=== PATIENT | male | born 1955 | race Caucasian/White ===

== ENCOUNTER 2025-06-10 14:20 | Emergency (ER) | payer OTHER, SELFPAY ==
[2025-06-10 14:24] VITALS: BP 162/103
[2025-06-10 14:42] LABS: Hematocrit 40.7 % (39.0-52.0); Hemoglobin 13.7 g/dL (13.0-18.0); Mean Corp Hgb Conc. 33.7 g/dL (33.0-37.0); Mean Corpuscular Volume 88.7 fL (80.0-94.0); Nucleated Red Blood Cells % 0 % (-); Platelet Count 226 10^3/uL (130-400); Red Cell Dist. Width 12.4 % (11.5-14.5)
--- NOTE | 2025-06-10 14:47 | EDRN ---
After triage was completed, patient was concerned about how long the wait time is. Patient states 'I have some things I have to take care of'
Patient was informed about the need for testing given his hx and complaints. Patient agreed to have ECG and some blood work.
Patient then stated that he needs to leave as he has things in his personal life he needs to get completed before coming back. Had detailed conversation with patient about the risk of leaving. Patient states ' I think i need to go be stupid for
awhile but once I get my things done, I will return.'
Patient ambulated out of department in no distress.
[2025-06-10 14:58] LABS: ALT (SGPT) 28 U/L (0-50); AST (SGOT) 24 U/L (17-59); Albumin 4.4 g/dl (3.5-5.0); Alkaline Phosphatase 80 U/L (38-126); Blood Urea Nitrogen 22 mg/dl (9-20); Calcium 9.3 mg/dl (8.4-10.2); Carbon Dioxide 25 mmol/L (22-30); Chloride 105 mmol/L (98-107); Glucose 93 mg/dl (70-99); Potassium 4.8 mmol/L (3.5-5.1); Sodium 137 mmol/L (135-145); Total Protein 7.3 g/dl (6.3-8.2); eGFR 46.06
[2025-06-10 15:08] LABS: Troponin I < 0.012 ng/ml
== END 2025-06-10 14:51 | disposition left against medical advice (07) ==
LOC: EMR 14:20
PROVIDERS: EMERGENCY PHYSICIAN Student in an Organized Health Care Education/Training Program
DX: R10.9 Unspecified abdominal pain (principal); Z53.21 Procedure and treatment not carried out due to patient leaving prior to being seen by health care provider
CPT/HCPCS: 80053; 84484; 85025; 93005

== ENCOUNTER 2025-06-10 16:56 | Emergency (ER) | payer OTHER, SELFPAY ==
[2025-06-10] VITALS (8 sets, daily range): BP systolic 105–181; BP diastolic 82–103
--- NOTE | 2025-06-10 22:10 | ED.GENMED ---
History of Present Illness
General
Chief Complaint: Abdominal Symptoms
Time Seen by Provider: 06/10/25 21:48
Nursing documentation reviewed up to this point in time: agreed with
History of Present Illness
History of Present Illness:
69-year-old male presents to the ER as referred from urgent care for further evaluation of abdominal discomfort. Patient states that he was up the majority of the night on due to diffuse anterior abdominal pain with radiation to the back.
He states that the symptoms seem to have improved spontaneously. He had a brief episode of exquisitely sharp pain after eating dinner on Tuesday night. He cannot recall what he ate for dinner that evening. Since then he has not had any pain. No
vomiting. No diarrhea. No change in bladder or urine. No flank pain. No paresthesias to arms or legs. He denies chest pain or shortness of breath. Patient is concerned given his prior history of thoracic aneurysm and valve repair. He recently
moved to the area from [place] but states that he has screening CAT scans every year to assess his grafts. He also has been told that he has gallstones but has not experienced any symptoms that he would have had attributed to gallstones percent
Review of Systems
Review of Systems
Allergies reviewed?: Yes
Phy Exam
Physical Exam
Physical Exam:
Patient is awake, alert, appears no acute distress, head is normocephalic atraumatic, sclera anicteric, mucous membranes moist, conjunctiva pink, no JVD, heart regular rate and rhythm with systolic click, lungs are clear to auscultation without
wheezes rales or rhonchi, abdomen is soft and nontender, no rebound or guarding, extremities without edema, 2+ DP pulses present symmetric bilateral, GCS is 15
Course
Orders/Labs/Results
Orders:
Orders
06/10/25 21:49
CT Chest/abd/pelvis Angio W/wo Urgent
Comment:
Reason For Exam: abd and back pain, concern for dissection
06/10/25 21:54
Type+Screen Urgent
PTT Urgent
Prothrombin Time Urgent
Labs reviewed from earlier today which were very reassuring, white blood count 6.5, normal hemoglobin,minimal elevation in creatinine at 1.6, BUN 22, normal electrolytes
Vital Signs
Initial and Last Documented VS:
Initial Vital Signs
Temp Pulse Resp BP Pulse Ox
98.3 F 59 18 144/87 96
06/10/25 17:07 06/10/25 17:07 06/10/25 17:07 06/10/25 17:07 06/10/25 17:07
Last Documented Vital Signs
Temp Pulse Resp BP Pulse Ox
98.3 F 50 15 163/91 97
06/10/25 17:07 06/10/25 23:30 06/10/25 23:30 06/10/25 23:00 06/10/25 23:30
MDM/Problems Addressed
Differential Diagnosis Includes:
Pancreatitis, acute cholelithiasis, acute choledocholithiasis, aortic aneurysm, aortic dissection, gastritis, gas along with other etiologies considered
Chronic conditions affecting care:
Prior aortic aneurysm with repair, renal cancer
*Radiology
Radiology exam reviewed: radiology read reviewed (IMPRESSION: No evidence of thoracic/abdominal aortic dissection or aneurysm. Findings suspicious for lobulated approximate 4 cm mass in the lower lobe of the left lung contiguous with the left side
of the descending thoracic aorta, MALIGNANCY THE DIAGNOSIS OF EXCLUSION, possibly metastatic. Prior)
*Pulse Oximetry
SaO2: 96
Oxygen Mode of Delivery: Room air
Patient hypoxic: no
*Critical Care Note
Total Time (30-74mins, 75-104mins- exclusive of procedures): Not Applicable
Update Note
Update Note:
Patient resting comfortably without any recurrent symptoms while in the emergency department. Once all test results available, I discussed with patient CT findings concerning for new metastatic disease in his left lower lobe. Patient was able to
pull up CT results from earlier this year through his online portal-this appears to be a new mass. I discussed with patient need to follow-up with oncology and his primary care physician. He is currently in the process of establishing care with a
local primary care physician as he recently moved to the area. He also would like to discuss this further with his care team in [place], which I reassured him would be very helpful. I also discussed with patient that his original symptoms may
still be related to his gallstones and encouraged him to follow a low-fat diet. I provided him with local surgical referral for further evaluation of his gallstones. Patient felt comfortable with plan for discharge and had no questions prior to
leaving the department.
ED Attending Note
-
Portions of this chart may have been created with voice recognition software.� Occasional wrong word or��sound alike� substitutions may have occurred due to the inherent limitations of voice recognition software.
Discharge Plan
Departure
Patient Disposition: Home (Routine Discharge)
Date of Disposition: 06/10/25
Time of Disposition: 23:32
Patient with high blood pressure during this ER visit?: Yes
Discharge Problem:
Abdominal pain, Mass of left lung, Gallstones
Instructions: Gallstones - ED discharge instructions
Referrals:
Sterling Li DO [Active, Hematology / Oncology]
Discharge Problem: Mass of left lung
Luis Fernando Hawley DO [Family Provider, Family Practice]
Piyush Gar MD [Active, Surgical]
Discharge Problem: Gallstones
Activity Restrictions/Additional Instructions:
Follow a bland low-fat diet until you are seen in follow-up. Please reach out to your cancer specialist in [place] tomorrow to review test results and help create further care plan given new finding of lung mass on the left. Please return to
the ER for any concerns including but not limited to inability to eat or drink, fever, uncontrolled pain
Interventions
Interventions:
*Risk Screen - Suicide Last Done: 06/10/25 17:07
*General Assessment Last Done: 06/10/25 22:00
*Neglect/Abuse Screening Last Done: 06/10/25 22:00
*ED- Fall Risk Assessment Last Done: 06/10/25 22:00
*Nursing Disposition Last Done: 06/10/25 23:57
PD-Jusjqg-Yydglbiscy Assessment Last Done: 06/10/25 22:00
Discharge Date and Time
Discharge Date/Time: 06/10/25 23:58
Print Language: [place]
[2025-06-10 22:20] LABS: INR 0.92; PT 12.7 Sec (11.4-14.6)
[2025-06-10 22:21] LABS: APTT 26.9 Sec (23.4-35.0)
== END 2025-06-10 23:58 | disposition home or self-care (01) ==
LOC: EMR 16:56
PROVIDERS: EMERGENCY PHYSICIAN Emergency Medicine; FAMILY PHYSICIAN Family Medicine
DX: R10.9 Unspecified abdominal pain (principal); R91.8 Other nonspecific abnormal finding of lung field; K80.20 Calculus of gallbladder without cholecystitis without obstruction; Z85.528 Personal history of other malignant neoplasm of kidney; Z90.5 Acquired absence of kidney
CPT/HCPCS: 99284; 71275; 74174; 85610; 85730; 86850; 86900; 86901; Q9967

== ENCOUNTER → 2025-06-20 11:26 | Outpatient (REF) | payer OTHER, SELFPAY | LOC: HWRAD 11:26 | PROVIDERS: ATTENDING PHYSICIAN Internal Medicine Critical Care Medicine; FAMILY PHYSICIAN Nurse Practitioner Family | DX: R91.8 Other nonspecific abnormal finding of lung field (principal) | CPT/HCPCS: 71250 ==

== ENCOUNTER → 2025-06-21 09:17 | Outpatient (REF) | payer OTHER, SELFPAY ==
[2025-06-21 10:58] LABS: Hematocrit 43.0 % (39.0-52.0); Hemoglobin 13.9 g/dL (13.0-18.0); Mean Corp Hgb Conc. 32.3 g/dL (33.0-37.0); Mean Corpuscular Volume 90.3 fL (80.0-94.0); Nucleated Red Blood Cells % 0 % (-); Platelet Count 236 10^3/uL (130-400); Red Cell Dist. Width 12.3 % (11.5-14.5)
[2025-06-21 11:04] LABS: INR 0.95; PT 13.0 Sec (11.4-14.6)
[2025-06-21 11:05] LABS: APTT 27.8 Sec (23.4-35.0)
[2025-06-21 11:29] LABS: Blood Urea Nitrogen 20 mg/dl (9-20); Calcium 9.9 mg/dl (8.4-10.2); Carbon Dioxide 30 mmol/L (22-30); Chloride 106 mmol/L (98-107); Glucose 96 mg/dl (70-99); Potassium 5.2 mmol/L (3.5-5.1); Sodium 140 mmol/L (135-145); eGFR 49.77
== END ==
LOC: REG 09:17
PROVIDERS: ATTENDING PHYSICIAN Internal Medicine Critical Care Medicine; FAMILY PHYSICIAN Nurse Practitioner Family; OTHER PHYSICIAN Family Medicine
DX: R91.8 Other nonspecific abnormal finding of lung field (principal); Z01.812 Encounter for preprocedural laboratory examination
CPT/HCPCS: 36415; 80048; 85025; 85610; 85730; 93005

== ENCOUNTER 2025-06-26 06:07 | Day surgery (SDC) | payer OTHER, SELFPAY ==
[2025-06-26] MEDS: VENTOLIN NEBULES 2.5 MG INH (12:30)
[2025-06-26 12:32] VITALS: BMI 25.8
[2025-06-26 12:45] VITALS: BMI 25.8
[2025-06-26 12:46] VITALS: BP 153/91
[2025-06-26 15:55] VITALS: BP 131/86; BP 153/91
[2025-06-26 16:20] VITALS: BP 131/79
[2025-06-26 16:35] VITALS: BP 128/7
[2025-06-26 16:50] VITALS: BP 124/68
== END 2025-06-26 16:59 | disposition home or self-care (01) ==
LOC: SDS 06:07
PROVIDERS: ATTENDING PHYSICIAN Internal Medicine Critical Care Medicine
DX: C34.32 Malignant neoplasm of lower lobe, left bronchus or lung (principal); R91.8 Other nonspecific abnormal finding of lung field; R93.89 Abnormal findings on diagnostic imaging of other specified body structures; I10 Essential (primary) hypertension; Z85.528 Personal history of other malignant neoplasm of kidney
CPT/HCPCS: 31627; 31654; 31623; 31629; 43238; 31628; 31624; 71045; 76000; 87070; 87102; 87116; 87205; 88112; 88172; 88173; 88305; 88341; 88342; 94640; C1887

== ENCOUNTER 2025-09-03 10:32 | Emergency (ER) | payer OTHER, SELFPAY ==
[2025-09-03 10:37] VITALS: BP 114/85
--- NOTE | 2025-09-03 11:45 | ED.SKININJ ---
HPI-Injury
General
Chief Complaint: Ear Problem
Source: patient
Exam Limitations: none
Time Seen by Provider: 09/03/25 11:44
Nursing documentation reviewed up to this point in time: agreed with
History of Present Illness-Injury
Initial Injury comments:
69-year-old male with history of HTN, HLD, left nephrectomy due to cancer, aortic aneurysm repair, aortic valve replacement, he states he was recently diagnosed with lung cancer which is spread to his bones and brain, followed by Dr. Li, he
had brain radiation and hip and pelvis radiation and is now on targeted chemo Tabrecta. History of chronic bilateral ear infections with drainage and tubes, recently moved here from [place] so has no doctors, presents stating he has had bloody
drainage from his left ear, he denies pain.
He states he has had this problem off and on for 'quite a few years' where the pressure builds in his ears and then finally it starts to drain. Patient states he had he states intermittently he gets a little fluid with maybe a little blood but
today there was more blood than usual. He called ENT doctor in [place] and could not get an appointment until October so he came here today.
'Some kind of ear surgery, not sure exactly what was done 15 years ago and ever since then he has had chronic intermittent pressure buildup and drainage, worse in the left ear.
He denies headache or fever.
Past History
Past History
ED Past Medical History: Cancer (Left kidney with nephrectomy), HTN and Hypercholesterolemia
ED Past Surgical History: Cardiac (Aortic aneurysm repair, AVR) and Urological (Left nephrectomy)
Social History
Tobacco: Former smoker
Alcohol: None
Personal:
Living: with family
Employment: Retired
Review of Systems
Review of Systems
Allergies reviewed?: Yes
All Other Systems: ROS reviewed and negative except as documented in HPI and ROS
Phy Exam
Physical Exam
Physical Exam:
GENERAL: No acute distress. A&Ox3.
CONSTITUTIONAL: Afebrile.
Neck: Supple, no lymphadenopathy
EYES: clear, conjunctivae normal
ENMT: moist mucus membranes, Pharynx nl, right TM is without swelling, drainage or inflammation, there is a blue myringotomy tube intact. Left TM is intact with a blue myringotomy tube intact there is mild swelling and a small amount of purulent
drainage. The ear canal appears normal
RESPIRATORY: Regular respirations, nonlabored, lungs clear.
CARDIOVASCULAR: Regular rate and rhythm, no murmurs, no rubs.
GI: Soft, nontender, normal BS
MUSCULOSKELETAL: Moves with ease. Well perfused.
SKIN: Warm, dry, pink
PSYCH: Normal mood and affect. Well kept, interactive and appropriate
NEUROLOGIC: Awake, alert and oriented. No focal neurological deficits
Course
Vital Signs
Initial and Last Documented VS:
Initial Vital Signs
Temp Pulse Resp BP Pulse Ox
98.4 F 72 18 114/85 98
09/03/25 10:37 09/03/25 10:37 09/03/25 10:37 09/03/25 10:37 09/03/25 10:37
Last Documented Vital Signs
Temp Pulse Resp BP Pulse Ox
98.4 F 72 18 114/85 98
09/03/25 10:37 09/03/25 10:37 09/03/25 10:37 09/03/25 10:37 09/03/25 11:45
MDM/Problems Addressed
Differential Diagnosis Includes:
Otitis media
MDM/Problems Addressed:
69-year-old male with history of HTN, HLD, left nephrectomy due to cancer, aortic aneurysm repair, aortic valve replacement, he states he was recently diagnosed with lung cancer which is spread to his bones and brain, followed by Dr. Li, he
had brain radiation and hip and pelvis radiation and is now on targeted chemo Tabrecta. History of chronic bilateral ear infections with drainage and tubes, recently moved here from [place] so has no doctors, presents stating he has had bloody
drainage from his left ear, he denies pain.
He states he has had this problem off and on for 'quite a few years' where the pressure builds in his ears and then finally it starts to drain. Patient states he had he states intermittently he gets a little fluid with maybe a little blood but
today there was more blood than usual. He called ENT doctor in [place] and could not get an appointment until October so he came here today.
'Some kind of ear surgery, not sure exactly what was done 15 years ago and ever since then he has had chronic intermittent pressure buildup and drainage, worse in the left ear.
He denies headache or fever.
Bilateral myringotomy tubes noted. The left TM is mildly swollen with a small amount of pus drainage, the ear canal is normal
Consulted ENT Dr. Eubanks he will see patient in office tomorrow
Since no pain, afebrile we will hold off on antibiotics since the ENT doctor can see him tomorrow. Appointment was made for 3:15 tomorrow
*Pulse Oximetry
SaO2: 98
Oxygen Mode of Delivery: Room air
Patient hypoxic: not evaluated
*Critical Care Note
Total Time (30-74mins, 75-104mins- exclusive of procedures): Not Applicable
ED Attending Note
-
Portions of this chart may have been created with voice recognition software.� Occasional wrong word or��sound alike� substitutions may have occurred due to the inherent limitations of voice recognition software.
Discharge Plan
Departure
Patient Disposition: Home (Routine Discharge)
Date of Disposition: 09/03/25
Time of Disposition: 12:07
Patient with high blood pressure during this ER visit?: No
Condition: Good
Discharge Problem:
Purulent drainage from left ear through ear tube
Instructions: Ear infections in adults
Prescriptions:
No Action
multivitamin Tablet
1 tab PO DAILY
losartan 50 mg Tablet
50 mg PO HS
atorvastatin 20 mg Tablet
60 mg PO HS
aspirin 81 mg Tablet
81 mg PO DAILY
metoprolol succinate 25 mg Tablet Extended Release 24 Hr
25 mg PO DAILY
acetaminophen [Tylenol Extra Strength] 500 mg Tablet
1,000 mg PO Q6H PRN (Reason: pain)
Referrals:
Kilo Eubanks, DO [Active, ENT] - Keep scheduled appt
Maria Luisa Lee CRNP [Family Provider, Family Practice]
Activity Restrictions/Additional Instructions:
As we discussed, I spoke with Joseluis at Dr. Eubanks's office. She said they have a 3:15 appointment available for you.
1 minute after I got off the phone with her telling her that you would call to confirm the appointment give your insurance information it was 12:01 noon and the office was closed for lunch.
Call the office at 1:00 and keep trying to you get someone and inform them that Joseluis said you could have an appointment at [phone] today. Have your Medicare and insurance cards available.
Interventions
Interventions:
*Risk Screen - Suicide Last Done: 09/03/25 10:37
*General Assessment Last Done: 09/03/25 10:37
*Neglect/Abuse Screening Last Done: 09/03/25 10:37
*ED COVID-19 Vaccine History Last Done: 09/03/25 12:14
*ED Influenza Vaccine History Last Done: 09/03/25 12:14
*Nursing Disposition Last Done: 09/03/25 12:14
Discharge Date and Time
Discharge Date/Time: 09/03/25 12:17
Print Language: UPPER [place]
== END 2025-09-03 12:17 | disposition home or self-care (01) ==
LOC: EMR 10:32
PROVIDERS: EMERGENCY PHYSICIAN Emergency Medicine; FAMILY PHYSICIAN Nurse Practitioner Family
DX: H92.22 Otorrhagia, left ear (principal); C34.90 Malignant neoplasm of unspecified part of unspecified bronchus or lung; C79.51 Secondary malignant neoplasm of bone; C79.31 Secondary malignant neoplasm of brain; Z85.528 Personal history of other malignant neoplasm of kidney; E78.00 Pure hypercholesterolemia, unspecified; I10 Essential (primary) hypertension; Z86.79 Personal history of other diseases of the circulatory system; Z87.891 Personal history of nicotine dependence; Z92.3 Personal history of irradiation; Z95.2 Presence of prosthetic heart valve; Z96.22 Myringotomy tube(s) status
CPT/HCPCS: 99282

== ENCOUNTER → 2025-09-24 10:34 | Outpatient (REF) | payer OTHER, SELFPAY | LOC: RAD 10:34 | PROVIDERS: ATTENDING PHYSICIAN Internal Medicine Hematology & Oncology; FAMILY PHYSICIAN Nurse Practitioner Family; REFERRING PHYSICIAN Specialist | DX: N17.9 Acute kidney failure, unspecified (principal) | CPT/HCPCS: 76770 ==

== ENCOUNTER → 2025-10-09 09:29 | Outpatient (REF) | payer OTHER, SELFPAY | LOC: PAVMRI 09:29 | PROVIDERS: ATTENDING PHYSICIAN Nurse Practitioner; FAMILY PHYSICIAN Nurse Practitioner Family | DX: C79.31 Secondary malignant neoplasm of brain (principal) | CPT/HCPCS: 70553 ==